=== PATIENT | female | born 1960 | race Caucasian/White ===

== ENCOUNTER → 2023-09-06 07:25 | Outpatient (REF) | payer OTHER, SELFPAY ==
[2023-09-06 08:35] LABS: % Basophils 1.8 % (0-2); % Eosinophils 1.6 % (0-6); % Immature Granulocytes 0.3 % (0-0.5); % Lymphocytes 38.9 % (20.5-51.1); % Monocytes 9.8 % (1.7-9.3); % Neutrophils 47.6 % (42.2-75.2); Absolute Basophils 0.1 10^3/uL (0-0.2); Absolute Eosinophils 0.1 10^3/uL (0-0.7); Absolute Lymphocytes 1.5 10^3/uL (1.2-3.4); Absolute Monocytes 0.4 10^3/uL (0.1-0.6); Absolute Neutrophils 1.8 10^3/uL (1.4-6.5); Hematocrit 41.1 % (37.0-47.0); Hemoglobin 13.6 g/dL (12.0-16.0); Mean Corp Hgb Conc. 33.1 g/dL (33.0-37.0); Mean Corpuscular Hgb 29.8 pg (27.0-31.0); Mean Corpuscular Volume 89.9 fL (81.0-99.0); Mean Platelet Volume 9.7 fL (7.4-10.4); Nucleated Red Blood Cells % 0 %; Platelet Count 294 10^3/uL (130-400); Red Blood Cell Count 4.57 10^6/uL (4.20-5.40); Red Cell Dist. Width 12.9 % (11.5-14.5); White Blood Cell Count 3.9 10^3/uL (4.8-10.8)
[2023-09-06 09:17] LABS: Blood Urea Nitrogen 22 mg/dl (7-17); Calcium 8.7 mg/dl (8.4-10.2); Carbon Dioxide 27 mmol/L (22-30); Chloride 104 mmol/L (98-107); Glucose 92 mg/dl (70-99); Sodium 136 mmol/L (135-145); eGFR > 60.00
[2023-09-06 09:40] LABS: Potassium 4.2 mmol/L (3.5-5.1)
== END ==
LOC: RCS 07:25
PROVIDERS: ATTENDING PHYSICIAN Orthopaedic Surgery; FAMILY PHYSICIAN Family Medicine
DX: Z01.818 Encounter for other preprocedural examination (principal)
CPT/HCPCS: 36415; 80048; 85025; 93005

== ENCOUNTER 2023-10-08 15:31 | Emergency (ER) | payer OTHER, SELFPAY ==
[2023-10-08 15:39] VITALS: BP 144/77
[2023-10-08 15:47] VITALS: BMI 21.1
[2023-10-08 16:08] LABS: % Basophils 0.8 % (0-2); % Eosinophils 1.6 % (0-6); % Immature Granulocytes 0.3 % (0-0.5); % Lymphocytes 19.3 % (20.5-51.1); % Monocytes 7.8 % (1.7-9.3); % Neutrophils 70.2 % (42.2-75.2); Absolute Basophils 0.1 10^3/uL (0-0.2); Absolute Eosinophils 0.1 10^3/uL (0-0.7); Absolute Lymphocytes 1.2 10^3/uL (1.2-3.4); Absolute Monocytes 0.5 10^3/uL (0.1-0.6); Absolute Neutrophils 4.4 10^3/uL (1.4-6.5); Hematocrit 36.2 % (37.0-47.0); Hemoglobin 12.1 g/dL (12.0-16.0); Mean Corp Hgb Conc. 33.4 g/dL (33.0-37.0); Mean Corpuscular Volume 89.6 fL (81.0-99.0); Mean Platelet Volume 9.6 fL (7.4-10.4); Nucleated Red Blood Cells % 0 %; Platelet Count 359 10^3/uL (130-400); Red Blood Cell Count 4.04 10^6/uL (4.20-5.40); Red Cell Dist. Width 13.3 % (11.5-14.5); White Blood Cell Count 6.3 10^3/uL (4.8-10.8)
[2023-10-08 16:09] VITALS: BP 123/74
[2023-10-08 16:28] LABS: ALT (SGPT) 20 U/L (0-35); AST (SGOT) 27 U/L (14-36); Albumin 4.1 g/dl (3.5-5.0); Alkaline Phosphatase 78 U/L (38-126); Blood Urea Nitrogen 20 mg/dl (7-17); Calcium 9.2 mg/dl (8.4-10.2); Carbon Dioxide 24 mmol/L (22-30); Chloride 102 mmol/L (98-107); Estimated Creatinine Clearance 77 ml/min; Glucose 103 mg/dl (70-99); Potassium 4.3 mmol/L (3.5-5.1); Sodium 133 mmol/L (135-145); Total Bilirubin 0.8 mg/dl (0.2-1.3); Total Protein 7.4 g/dl (6.3-8.2); eGFR > 60.00
[2023-10-08 16:36] LABS: Troponin I < 0.012 ng/ml
[2023-10-08 16:48] LABS: D-Dimer 9.26 ug/mlFEU (0.00-0.50)
--- NOTE | 2023-10-08 19:09 | ED.GENMED ---
History of Present Illness
General
Chief Complaint: Fainting Sensation
Source: patient and family
Exam Limitations: none
Time Seen by Provider: 10/08/23 15:49
Nursing documentation reviewed up to this point in time: agreed with
Travel History
Have you had any contact with someone who has COVID-19?: No
Do you have any symptoms of coronavirus? Fever > 100 degrees, chills, cough, shortness of breath, sore throat, loss of taste or smell, muscle aches, or headache?: No
History of Present Illness
History of Present Illness:
63-year-old female past medical history of GERD and left hip replacement 2 weeks ago presenting to the emergency department today with concerns of episode of lightheadedness while she was doing some work around the house and has felt some
lightheadedness ongoing since then did not fully lose conscious denies chest pain did have some palpitations afterward. Denies nausea vomiting fevers. Denies cough. Denies significant shortness of breath. Has had ongoing leg swelling to the left
leg. Denies redness or warmth.
Review of Systems
Review of Systems
Allergies reviewed?: Yes
All Other Systems: ROS reviewed and negative except as documented in HPI and ROS
Phy Exam
Physical Exam
Physical Exam:
GENERAL: Alert , in no apparent distress
EYE: pupils equal and reactive
NECK: Supple, no significant adenopathy.
ENT: o/p clr, mmm.
CARDIAC: Regular rate and rhythm .
LUNGS: Clear breath sounds bilaterally, no acute respiratory distress, no wheezes/rales/rhonchi
ABDOMEN: Soft, without focal tenderness, no r/g, no cvat
NEUROLOGICAL: Alert and oriented, no focal neuro deficits
SKIN: Warm and dry, skin intact.
MUSCULOSKELETAL: Swelling diffusely to the left lower extremity hip distally with +1 pitting edema., well perfused.
PSYCH: Normal and appropriate interaction.
Course
Orders/Labs/Results
Orders:
Orders
10/08/23 15:40
Electrocardiogram (*1) Urgent
Reason for Study: Chest Pain
EKG- Treatment ONCE
IV Insert/Care/Rem.- Treatment PRN
10/08/23 15:51
Complete Blood Count/With Diff Urgent
Comprehensive Metabolic Panel Urgent
Troponin I Urgent
10/08/23 16:15
Venous Doppler Lwr Ext Left [US Periph Venous LOWER Ext LT] Urgent
Comment:
Reason For Exam: left leg swelling recent surgeyr to hip
10/08/23 16:23
D-Dimer Urgent
10/08/23 17:13
CT Chest Pe Study Urgent
Comment:
Reason For Exam: elevated dimer, sob/LH recent left hip surgery
Abnormal Lab Results
10/08/23 10/08/23
15:51 16:23
RBC 4.04 L 10^6/uL
(4.20-5.40)
Hct 36.2 L %
(37.0-47.0)
Lymphocytes % 19.3 L %
(20.5-51.1)
D-Dimer 9.26 H ug/mlFEU
(0.00-0.50)
Sodium 133 L mmol/L
(135-145)
BUN 20 H mg/dl
(7-17)
Glucose 103 H mg/dl
(70-99)
10/08/23 15:51
10/08/23 15:51
Vital Signs
Initial and Last Documented VS:
Initial Vital Signs
Temp Pulse Resp BP Pulse Ox
98.2 F 82 18 144/77 100
10/08/23 15:39 10/08/23 15:39 10/08/23 15:39 10/08/23 15:39 10/08/23 15:39
Last Documented Vital Signs
Temp Pulse Resp BP Pulse Ox
98.2 F 87 12 123/74 99
10/08/23 15:39 10/08/23 18:00 10/08/23 18:00 10/08/23 16:09 10/08/23 18:00
MDM/Problems Addressed
MDM/Problems Addressed:
63-year-old female presenting to the emergency department today with concerns of lightheadedness. Had recent hip surgery 2 weeks ago. Has had ongoing leg swelling. Denies any chest pain did have some intermittent palpitations today. Upon arrival
vital signs are normal patient in no obvious distress lungs are clear left leg is swollen ultrasound performed without emergent findings or clot troponin negative dimer was significantly elevated however this is likely be due to recent surgery
however CT scan was ordered to rule out PE. PE negative. Patient appears stable for outpatient management return precautions given.
*Critical Care Note
Total Time (30-74mins, 75-104mins- exclusive of procedures): Not Applicable
ED Attending Note
-
Portions of this chart may have been created with voice recognition software.� Occasional wrong word or��sound alike� substitutions may have occurred due to the inherent limitations of voice recognition software.
Discharge Plan
Departure
Patient Disposition: Home (Routine Discharge)
Date of Disposition: 10/08/23
Time of Disposition: 19:11
Patient with high blood pressure during this ER visit?: No
Condition: Good
Covid-19: Not Applicable
Discharge Problem:
Light-headed
Instructions: Near Fainting (DC)
Prescriptions:
No Action
omeprazole 40 mg Capsule,Delayed Release(Dr/Ec)
40 mg PO DAILY
docusate sodium [Colace] 100 mg Capsule
100 mg PO DAILY
aspirin 81 mg Tablet
81 mg PO DAILY
polyethylene glycol 3350 [Miralax] 17 gram/dose Powder
4 g PO DAILY
Referrals:
Jose Dixon MD [Family Provider] -
Activity Restrictions/Additional Instructions:
You came to the emergency department today with concerns of an episode of lightheadedness and palpitations.. Reassuring evaluation. Please help closely as an outpatient. Return to the emergency department for any worsening, new or concerning
symptoms.
Interventions
Interventions:
*Risk Screen - Suicide Last Done: 10/08/23 17:46
*General Assessment Last Done: 10/08/23 17:47
*Neglect/Abuse Screening Last Done: 10/08/23 17:46
ED- Fall Risk Assessment Last Done: 10/08/23 17:47
*ED COVID-19 Vaccine History Last Done: 10/08/23 15:48
ED- Cardiac Assessment Last Done: 10/08/23 17:46
ED- Neurological Assessment Last Done: 10/08/23 17:46
Discharge Date and Time
Print Language: SAMI
[2023-10-08 19:52] VITALS: BP 93/82
[2023-10-08 20:47] VITALS: BP 110/70
== END 2023-10-08 20:49 | disposition home or self-care (01) ==
LOC: EMR 15:31
PROVIDERS: Physician Assistant; EMERGENCY PHYSICIAN Emergency Medicine; FAMILY PHYSICIAN Family Medicine
DX: R42 Dizziness and giddiness (principal); R22.42 Localized swelling, mass and lump, left lower limb; R00.2 Palpitations; R79.89 Other specified abnormal findings of blood chemistry
CPT/HCPCS: 99285; 71275; 80053; 84484; 85025; 85379; 93005; 93971; Q9967

== ENCOUNTER → 2023-11-01 09:30 | Outpatient (REF) | payer OTHER, SELFPAY ==
[2023-11-01 12:22] LABS: Rubella Positive
[2023-11-01 15:35] LABS: Hepatitis B Surface Antibody Negative
[2023-11-03 23:51] LABS: Quantiferon Mitogen minus NIL 6.61 IU/mL; Quantiferon NIL 0.02 IU/mL; Quantiferon TB Gold Plus Negative (Negative)
[2023-11-07 16:55] LABS: Mumps Virus IgG Positive; Varicella Zoster IgG (VZV) Positive
[2023-11-08 14:34] LABS: Rubeola (Measles) IgG Positive
== END ==
LOC: OHS 09:30
PROVIDERS: ATTENDING PHYSICIAN Nurse Practitioner Family
DX: Z23 Encounter for immunization (principal)
CPT/HCPCS: 36415; 86480; 86706; 86735; 86762; 86765; 86787

== ENCOUNTER 2023-12-12 07:35 | Emergency (ER) | payer BC, SELFPAY ==
[2023-12-12 07:46] VITALS: BP 121/87
[2023-12-12 08:09] LABS: % Basophils 0.9 % (0-2); % Eosinophils 0.9 % (0-6); % Immature Granulocytes 0.5 % (0-0.5); % Lymphocytes 25.5 % (20.5-51.1); % Neutrophils 63.2 % (42.2-75.2); Absolute Lymphocytes 1.1 10^3/uL (1.2-3.4); Absolute Monocytes 0.4 10^3/uL (0.1-0.6); Absolute Neutrophils 2.7 10^3/uL (1.4-6.5); Hematocrit 41.8 % (37.0-47.0); Hemoglobin 13.8 g/dL (12.0-16.0); Mean Corpuscular Hgb 28.8 pg (27.0-31.0); Mean Corpuscular Volume 87.3 fL (81.0-99.0); Mean Platelet Volume 9.7 fL (7.4-10.4); Nucleated Red Blood Cells % 0 %; Platelet Count 234 10^3/uL (130-400); Red Blood Cell Count 4.79 10^6/uL (4.20-5.40); White Blood Cell Count 4.2 10^3/uL (4.8-10.8)
[2023-12-12 08:13] LABS: Urine Albumin Negative (Neg - Trace); Urine Bilirubin Negative (Negative); Urine Character Clear (Clear); Urine Color Yellow; Urine Glucose Negative (Negative); Urine Ketone Trace (Negative); Urine Leukocyte Trace (Negative); Urine Nitrite Negative (Negative); Urine Occult Blood 1+ (Negative); Urine Urobilinogen Negative (Neg - 1+); Urine pH 6.5 (5.0-9.0)
[2023-12-12 08:22] LABS: ALT (SGPT) 20 U/L (0-35); AST (SGOT) 24 U/L (14-36); Albumin 4.4 g/dl (3.5-5.0); Alkaline Phosphatase 66 U/L (38-126); Blood Urea Nitrogen 15 mg/dl (7-17); Calcium 9.5 mg/dl (8.4-10.2); Carbon Dioxide 31 mmol/L (22-30); Chloride 102 mmol/L (98-107); Glucose 110 mg/dl (70-99); Potassium 4.5 mmol/L (3.5-5.1); Sodium 140 mmol/L (135-145); Total Bilirubin 0.9 mg/dl (0.2-1.3); Total Protein 8.1 g/dl (6.3-8.2); eGFR > 60.00
[2023-12-12 08:37] LABS: Urine Bacteria Few (Negative); Urine Squamous Cell 21-25 /LPF (Few)
[2023-12-12 08:38] LABS: Urine White Cell 0-2 /HPF (0-5)
--- NOTE | 2023-12-12 09:30 | ED.GENMED ---
History of Present Illness
General
Chief Complaint: Abdominal Symptoms
Source: patient
Exam Limitations: none
Time Seen by Provider: 12/12/23 09:20
Nursing documentation reviewed up to this point in time: agreed with
Travel History
Have you had any contact with someone who has COVID-19?: No
Do you have any symptoms of coronavirus? Fever > 100 degrees, chills, cough, shortness of breath, sore throat, loss of taste or smell, muscle aches, or headache?: No
History of Present Illness
History of Present Illness:
63-year-old female past medical history of GERD presenting to the emergency department today with concerns of diffuse abdominal discomfort over the past 2 days denies nausea vomiting. She claims it hurts to touch. Denies similar symptoms in the
past. Tried taking Protonix without relief.
Review of Systems
Review of Systems
Allergies reviewed?: Yes
All Other Systems: ROS reviewed and negative except as documented in HPI and ROS
Phy Exam
Physical Exam
Physical Exam:
GENERAL: Alert , in no apparent distress
EYE: pupils equal and reactive
NECK: Supple, no significant adenopathy.
ENT: o/p clr, mmm.
CARDIAC: Regular rate and rhythm .
LUNGS: Clear breath sounds bilaterally, no acute respiratory distress, no wheezes/rales/rhonchi
ABDOMEN: Mild tenderness palpation throughout the abdomen maximal to the epigastric region
NEUROLOGICAL: Alert and oriented, no focal neuro deficits
SKIN: Warm and dry, skin intact.
MUSCULOSKELETAL: No edema, well perfused.
PSYCH: Normal and appropriate interaction.
Course
Orders/Labs/Results
Orders:
Orders
12/12/23 07:53
Complete Blood Count/With Diff Urgent
Comprehensive Metabolic Panel Urgent
Lipase Urgent
Comment: ADD ON
Urinalysis Reflex To Culture Urgent
Date Specimen was Collected: 12/12/23
Time Specimen was Collected: 07:48
Urine Microscopic Reflex Cult Urgent
12/12/23 09:29
Add On- LAB Urgent
Tests Added?: lipase
CT Abd/Pel (IV only)-DH only Urgent
Comment:
Reason For Exam: diffuse abd pa,in for a few days
12/12/23 09:31
EKG [Electrocardiogram (*1)] Urgent
Reason for Study: Abdominal Pain
EKG- Treatment ONCE
Abnormal Lab Results
12/12/23
07:53
WBC 4.2 L 10^3/uL
(4.8-10.8)
Absolute Lymphs (auto) 1.1 L 10^3/uL
(1.2-3.4)
Carbon Dioxide 31 H mmol/L
(22-30)
Glucose 110 H mg/dl
(70-99)
Urine Ketones Trace A
(Negative)
Ur Occult Blood Reflex 1+ A
(Negative)
Leukocyte Esterase Rfl Trace A
(Negative)
Urine RBC 3-6 A /HPF
(0-2)
Urine Bacteria (Reflex) Few A
(Negative)
12/12/23 07:53
12/12/23 07:53
Vital Signs
Initial and Last Documented VS:
Initial Vital Signs
Temp Pulse Resp BP Pulse Ox
98.0 F 76 16 121/87 98
12/12/23 07:46 12/12/23 07:46 12/12/23 07:46 12/12/23 07:46 12/12/23 07:46
Last Documented Vital Signs
Temp Pulse Resp BP Pulse Ox
98.0 F 70 13 125/64 100
12/12/23 07:46 12/12/23 10:16 12/12/23 10:16 12/12/23 10:15 12/12/23 10:16
MDM/Problems Addressed
MDM/Problems Addressed:
63-year-old female presenting to the emergency department today with concerns of somewhat diffuse abdominal pain but maximal to the epigastric region over the past few days tried taking omeprazole at home without relief. No nausea vomiting or
diarrhea. Labs unremarkable CT scan without emergent findings patient generally well-appearing no acute distress advised for outpatient follow-up with GI return precautions given.
*Critical Care Note
Total Time (30-74mins, 75-104mins- exclusive of procedures): Not Applicable
ED Attending Note
-
Portions of this chart may have been created with voice recognition software.� Occasional wrong word or��sound alike� substitutions may have occurred due to the inherent limitations of voice recognition software.
Discharge Plan
Departure
Patient Disposition: Home (Routine Discharge)
Date of Disposition: 12/12/23
Time of Disposition: 11:46
Patient with high blood pressure during this ER visit?: No
Condition: Good
Covid-19: Not Applicable
Discharge Problem:
Abdominal pain
Instructions: Abdominal Pain
Prescriptions:
No Action
omeprazole 40 mg Capsule,Delayed Release(Dr/Ec)
40 mg PO DAILY
docusate sodium [Colace] 100 mg Capsule
100 mg PO DAILY
aspirin 81 mg Tablet
81 mg PO DAILY
polyethylene glycol 3350 [Miralax] 17 gram/dose Powder
4 g PO DAILY
Referrals:
Jose Dixon MD [Family Provider] -
Activity Restrictions/Additional Instructions:
You came to the emergency department today with concerns of abdominal pain. Here your reassuring assessment. Please feel close with GI. Please also take famotidine once daily at night as well as Maalox as needed. Return to the emergency
department for any worsening, new or concerning symptoms.
Interventions
Interventions:
*Risk Screen - Suicide Last Done: 12/12/23 09:40
*General Assessment Last Done: 12/12/23 09:40
*Neglect/Abuse Screening Last Done: 12/12/23 09:40
*ED COVID-19 Vaccine History Last Done: 12/12/23 07:46
[id number]-[id number] Assessment Last Done: 12/12/23 09:40
Discharge Date and Time
Print Language: YAKUT
[2023-12-12 10:11] LABS: Lipase 129 U/L (23-300)
[2023-12-12 10:15] VITALS: BP 125/64
[2023-12-12 11:00] VITALS: BP 128/69
== END 2023-12-12 12:12 | disposition home or self-care (01) ==
LOC: EMR 07:35
PROVIDERS: Emergency Medicine; EMERGENCY PHYSICIAN Emergency Medicine; FAMILY PHYSICIAN Family Medicine
DX: R10.84 Generalized abdominal pain (principal); K21.9 Gastro-esophageal reflux disease without esophagitis; Z96.642 Presence of left artificial hip joint; Z88.0 Allergy status to penicillin
CPT/HCPCS: 99285; 74177; 80053; 81003; 81015; 83690; 85025; 93005; Q9967

== ENCOUNTER → 2024-04-06 10:58 | Outpatient (REF) | payer BC, SELFPAY ==
[2024-04-08 07:33] LABS: Alternaria tenuis <0.10 kU/L (<=0.34); Aspergillus fumigatus <0.10 kU/L (<=0.34); Bermuda Grass <0.10 kU/L (<=0.34); Birch Tree <0.10 kU/L (<=0.34); Box Elder/Maple Tree <0.10 kU/L (<=0.34); Cat Epithelium/Dander <0.10 kU/L (<=0.34); Common Pigweed <0.10 kU/L (<=0.34); Common/Short Ragweed <0.10 kU/L (<=0.34); Cottonwood Tree <0.10 kU/L (<=0.34); Dermatophagoides farinae <0.10 kU/L (<=0.34); Dermatophagoides pteronyssinus <0.10 kU/L (<=0.34); Dog Dander <0.10 kU/L (<=0.34); Elm Tree <0.10 kU/L (<=0.34); German Cockroach <0.10 kU/L (<=0.34); Hormodendrum <0.10 kU/L (<=0.34); IgE 20 kU/L (<=214); Mountain Cedar Tree <0.10 kU/L (<=0.34); Mouse Epithelium <0.10 kU/L (<=0.34); Mucor racemosus <0.10 kU/L (<=0.34); Mugwort Weed <0.10 kU/L (<=0.34); Oak Tree <0.10 kU/L (<=0.34); Penicillium notatum <0.10 kU/L (<=0.34); Sheep Sorrel Weed <0.10 kU/L (<=0.34); Sycamore Tree <0.10 kU/L (<=0.34); Timothy Grass <0.10 kU/L (<=0.34); Walnut Tree <0.10 kU/L (<=0.34); White Ash Tree <0.10 kU/L (<=0.34); White Mulberry Tree <0.10 kU/L (<=0.34)
== END ==
LOC: REG 10:58
PROVIDERS: ATTENDING PHYSICIAN Internal Medicine; FAMILY PHYSICIAN Family Medicine
DX: J31.0 Chronic rhinitis (principal); J30.1 Allergic rhinitis due to pollen
CPT/HCPCS: 36415; 82785; 86003

== ENCOUNTER → 2024-06-22 07:24 | Outpatient (REF) | payer BC, SELFPAY ==
[2024-06-22 09:24] LABS: % Basophils 1.5 % (0-2); % Eosinophils 1.8 % (0-6); % Lymphocytes 36.2 % (20.5-51.1); % Monocytes 9.7 % (1.7-9.3); % Neutrophils 50.8 % (42.2-75.2); Absolute Basophils 0.1 10^3/uL (0-0.2); Absolute Eosinophils 0.1 10^3/uL (0-0.7); Absolute Lymphocytes 1.4 10^3/uL (1.2-3.4); Absolute Monocytes 0.4 10^3/uL (0.1-0.6); Hematocrit 41.6 % (37.0-47.0); Hemoglobin 13.7 g/dL (12.0-16.0); Mean Corp Hgb Conc. 32.9 g/dL (33.0-37.0); Mean Corpuscular Hgb 29.8 pg (27.0-31.0); Mean Corpuscular Volume 90.6 fL (81.0-99.0); Mean Platelet Volume 10.8 fL (7.4-10.4); Nucleated Red Blood Cells % 0 %; Platelet Count 195 10^3/uL (130-400); Red Blood Cell Count 4.59 10^6/uL (4.20-5.40); Red Cell Dist. Width 13.2 % (11.5-14.5); White Blood Cell Count 3.9 10^3/uL (4.8-10.8)
[2024-06-22 09:55] LABS: ALT (SGPT) 26 U/L (0-35); AST (SGOT) 29 U/L (14-36); Albumin 4.3 g/dl (3.5-5.0); Alkaline Phosphatase 49 U/L (38-126); Amylase 138 U/L (30-110); Blood Urea Nitrogen 26 mg/dl (7-17); Carbon Dioxide 30 mmol/L (22-30); Chloride 101 mmol/L (98-107); Glucose 86 mg/dl (70-99); HDL Cholesterol 97 mg/dl; LDL Cholesterol, Calculated 116 mg/dl; Lipase 333 U/L (23-300); Potassium 4.5 mmol/L (3.5-5.1); Sodium 139 mmol/L (135-145); Total Cholesterol 223 mg/dl (50-199); Total Protein 7.8 g/dl (6.3-8.2); Triglyceride 53 mg/dl (10-149); Very Low Density Lipoprotein 10 mg/dl (0-30); eGFR > 60.00
[2024-06-22 10:13] LABS: Glycohemoglobin (HgbA1c) 5.7 % (4.0-5.6)
[2024-06-22 11:08] LABS: TSH 1.14 uIU/ml (0.47-4.68)
[2024-06-22 15:32] LABS: Lactic Acid 0.7 mmol/L (0.7-2.0)
== END ==
LOC: REG 07:24
PROVIDERS: ATTENDING PHYSICIAN Family Medicine
DX: Z00.00 Encounter for general adult medical examination without abnormal findings (principal); E78.2 Mixed hyperlipidemia; K22.70 Barrett's esophagus without dysplasia; K92.89 Other specified diseases of the digestive system; R73.9 Hyperglycemia, unspecified
CPT/HCPCS: 36415; 80053; 80061; 82150; 83036; 83605; 83690; 84443; 85025

== ENCOUNTER → 2024-08-31 07:48 | Outpatient (REF) | payer BC, SELFPAY ==
[2024-08-31 08:59] LABS: % Basophils 1.2 % (0-2); % Eosinophils 2.9 % (0-6); % Immature Granulocytes 0.2 % (0-0.5); % Lymphocytes 35.4 % (20.5-51.1); % Monocytes 9.7 % (1.7-9.3); % Neutrophils 50.6 % (42.2-75.2); Absolute Basophils 0.1 10^3/uL (0-0.2); Absolute Eosinophils 0.1 10^3/uL (0-0.7); Absolute Lymphocytes 1.5 10^3/uL (1.2-3.4); Absolute Monocytes 0.4 10^3/uL (0.1-0.6); Absolute Neutrophils 2.1 10^3/uL (1.4-6.5); Hematocrit 42.9 % (37.0-47.0); Mean Corp Hgb Conc. 32.6 g/dL (33.0-37.0); Mean Corpuscular Hgb 30.3 pg (27.0-31.0); Mean Corpuscular Volume 92.9 fL (81.0-99.0); Mean Platelet Volume 10.4 fL (7.4-10.4); Nucleated Red Blood Cells % 0 %; Platelet Count 181 10^3/uL (130-400); Red Blood Cell Count 4.62 10^6/uL (4.20-5.40); Red Cell Dist. Width 13.2 % (11.5-14.5); White Blood Cell Count 4.2 10^3/uL (4.8-10.8)
[2024-08-31 09:33] LABS: ALT (SGPT) 24 U/L (0-35); AST (SGOT) 30 U/L (14-36); Alkaline Phosphatase 53 U/L (38-126); Blood Urea Nitrogen 23 mg/dl (7-17); Carbon Dioxide 29 mmol/L (22-30); Chloride 102 mmol/L (98-107); Glucose 91 mg/dl (70-99); Potassium 4.4 mmol/L (3.5-5.1); Sodium 137 mmol/L (135-145); Total Protein 7.6 g/dl (6.3-8.2); eGFR > 60.00
== END ==
LOC: REG 07:48
PROVIDERS: ATTENDING PHYSICIAN Internal Medicine Medical Oncology; FAMILY PHYSICIAN Family Medicine
DX: D47.2 Monoclonal gammopathy (principal)
CPT/HCPCS: 36415; 80053; 82784; 83521; 84155; 84165; 85025; 86334

== ENCOUNTER → 2024-09-03 09:33 | Outpatient (REF) | payer BC, SELFPAY ==
[2024-09-05 08:53] LABS: 24 Hour Urine Total Volume 1700 mL; Ur Free Lambda Excretion/day 17.07 mg/d; Urine Collection Length 24 hr; Urine Free Kappa Excretion/Day 7.56 mg/d; Urine Free Kappa Light Chains 4.45 mg/L (0.00-32.90); Urine Free Lambda Light Chains 10.04 mg/L (0.00-3.79)
== END ==
LOC: REG 09:33
PROVIDERS: ATTENDING PHYSICIAN Internal Medicine Medical Oncology; FAMILY PHYSICIAN Family Medicine
DX: D47.2 Monoclonal gammopathy (principal)
CPT/HCPCS: 83521; 84156; 86335

== ENCOUNTER → 2024-11-20 08:01 | Outpatient (REF) | payer BC, SELFPAY ==
[2024-11-20 09:25] LABS: ALT (SGPT) 40 U/L (0-35); AST (SGOT) 118 U/L (14-36); Albumin 5.3 g/dl (3.5-5.0); Alkaline Phosphatase 416 U/L (38-126); Blood Urea Nitrogen 23 mg/dl (7-17); Calcium 8.6 mg/dl (8.4-10.2); Carbon Dioxide 26 mmol/L (22-30); Chloride 108 mmol/L (98-107); Glucose 85 mg/dl (70-99); Potassium 4.5 mmol/L (3.5-5.1); Sodium 141 mmol/L (135-145); Total Bilirubin 6.2 mg/dl (0.2-1.3); Total Protein 9.4 g/dl (6.3-8.2); eGFR > 60.00
[2024-11-20 11:47] LABS: Vitamin D, 25-OH*** 32.9 ng/mL (30-80)
== END ==
LOC: REG 08:01
PROVIDERS: ATTENDING PHYSICIAN Internal Medicine Rheumatology; FAMILY PHYSICIAN Family Medicine
DX: E55.9 Vitamin D deficiency, unspecified (principal); M81.0 Age-related osteoporosis without current pathological fracture
CPT/HCPCS: 36415; 80053; 82306

== ENCOUNTER → 2024-11-22 14:51 | Outpatient (REF) | payer BC, SELFPAY ==
[2024-11-22 16:23] LABS: ALT (SGPT) 20 U/L (0-35); AST (SGOT) 24 U/L (14-36); Albumin 4.1 g/dl (3.5-5.0); Alkaline Phosphatase 52 U/L (38-126); Amylase 96 U/L (30-110); Blood Urea Nitrogen 23 mg/dl (7-17); Calcium 9.6 mg/dl (8.4-10.2); Carbon Dioxide 28 mmol/L (22-30); GGTP 11 U/L (12-43); Glucose 113 mg/dl (70-99); Lipase 199 U/L (23-300); Total Bilirubin 0.6 mg/dl (0.2-1.3); Total Protein 8.2 g/dl (6.3-8.2); eGFR > 60.00
[2024-11-22 16:24] LABS: Chloride 105 mmol/L (98-107); Potassium 4.6 mmol/L (3.5-5.1); Sodium 140 mmol/L (135-145)
[2024-11-22 16:35] LABS: % Immature Granulocytes 0.3 % (0-0.5); % Lymphocytes 25.6 % (20.5-51.1); % Neutrophils 64.1 % (42.2-75.2); Absolute Basophils 0.1 10^3/uL (0-0.2); Absolute Eosinophils 0.1 10^3/uL (0-0.7); Absolute Lymphocytes 1.6 10^3/uL (1.2-3.4); Absolute Monocytes 0.5 10^3/uL (0.1-0.6); Hematocrit 41.6 % (37.0-47.0); Hemoglobin 13.4 g/dL (12.0-16.0); Mean Corp Hgb Conc. 32.2 g/dL (33.0-37.0); Mean Corpuscular Hgb 29.5 pg (27.0-31.0); Mean Corpuscular Volume 91.6 fL (81.0-99.0); Mean Platelet Volume 10.3 fL (7.4-10.4); Nucleated Red Blood Cells % 0 %; Platelet Count 216 10^3/uL (130-400); Red Blood Cell Count 4.54 10^6/uL (4.20-5.40); Red Cell Dist. Width 13.1 % (11.5-14.5); White Blood Cell Count 6.3 10^3/uL (4.8-10.8)
[2024-11-22 16:56] LABS: Hepatitis B Surface Antigen Negative (Negative)
[2024-11-22 17:13] LABS: Hepatitis A Antibody, Total Negative (Negative); Hepatitis B Core Ab, Total Negative (Negative); Hepatitis B Surface Antibody Negative; Hepatitis C Antibody Negative (Negative)
== END ==
LOC: REG 14:51
PROVIDERS: ATTENDING PHYSICIAN Nurse Practitioner Family; FAMILY PHYSICIAN Family Medicine
DX: R74.8 Abnormal levels of other serum enzymes (principal)
CPT/HCPCS: 36415; 80053; 82150; 82977; 83690; 85025; 86704; 86706; 86708; 86803; 87340

== ENCOUNTER → 2025-03-15 07:55 | Outpatient (REF) | payer BC, SELFPAY ==
[2025-03-15 08:58] LABS: Hematocrit 38.5 % (37.0-47.0); Hemoglobin 13.0 g/dL (12.0-16.0); Mean Corp Hgb Conc. 33.8 g/dL (33.0-37.0); Mean Corpuscular Volume 90.0 fL (81.0-99.0); Nucleated Red Blood Cells % 0 %; Platelet Count 194 10^3/uL (130-400); Red Cell Dist. Width 12.7 % (11.5-14.5)
[2025-03-15 09:22] LABS: ALT (SGPT) 29 U/L (0-35); AST (SGOT) 39 U/L (14-36); Albumin 4.1 g/dl (3.5-5.0); Alkaline Phosphatase 38 U/L (38-126); Blood Urea Nitrogen 25 mg/dl (7-17); Calcium 8.8 mg/dl (8.4-10.2); Carbon Dioxide 28 mmol/L (22-30); Chloride 106 mmol/L (98-107); Glucose 90 mg/dl (70-99); Potassium 4.6 mmol/L (3.5-5.1); Sodium 138 mmol/L (135-145); Total Protein 7.8 g/dl (6.3-8.2); eGFR > 60.00
== END ==
LOC: REG 07:55
PROVIDERS: ATTENDING PHYSICIAN Internal Medicine Medical Oncology; FAMILY PHYSICIAN Family Medicine
DX: D47.2 Monoclonal gammopathy (principal)
CPT/HCPCS: 36415; 80053; 82784; 83521; 84155; 84165; 85025; 86334

== ENCOUNTER → 2025-05-09 07:44 | Outpatient (REF) | payer BC, SELFPAY | LOC: WDC 07:44 | PROVIDERS: ATTENDING PHYSICIAN Nurse Practitioner Adult Health; FAMILY PHYSICIAN Family Medicine | DX: N63.20 Unspecified lump in the left breast, unspecified quadrant (principal) | CPT/HCPCS: 19083; 19084; 88305; 88341; 88342; 88360; A4648 ==

== ENCOUNTER → 2025-05-25 07:15 | Outpatient (REF) | payer BC, SELFPAY ==
[2025-05-25 08:28] LABS: Urine Character Clear (Clear)
[2025-05-25 09:10] LABS: Urine Squamous Cell >30 /LPF (Few); Urine White Cell None Seen /HPF (0-5)
== END ==
LOC: REG 07:15
PROVIDERS: ATTENDING PHYSICIAN Nurse Practitioner Family; FAMILY PHYSICIAN Family Medicine
DX: R39.9 Unspecified symptoms and signs involving the genitourinary system (principal)
CPT/HCPCS: 81003; 81015

== ENCOUNTER → 2025-05-29 11:02 | Outpatient (REF) | payer BC, SELFPAY ==
[2025-05-29 16:40] LABS: Urine Character Clear (Clear)
[2025-05-29 16:59] LABS: Urine Red Blood Cell 0-2 /HPF (0-2); Urine Squamous Cell 0-2 /LPF (Few)
[2025-05-29 17:00] LABS: Urine White Cell 0-2 /HPF (0-5)
== END ==
LOC: CLAB 11:02
PROVIDERS: ATTENDING PHYSICIAN Nurse Practitioner
DX: N39.0 Urinary tract infection, site not specified (principal)
CPT/HCPCS: 81003; 81015; 87086

== ENCOUNTER 2025-07-09 09:23 | Outpatient (RCR) | payer BC, SELFPAY | END 2025-07-09 23:59 | disposition home or self-care (01) | LOC: RPT 09:23 | PROVIDERS: ATTENDING PHYSICIAN Nurse Practitioner Adult Health; FAMILY PHYSICIAN Family Medicine | DX: C50.412 Malignant neoplasm of upper-outer quadrant of left female breast (principal); Z73.6 Limitation of activities due to disability; M62.81 Muscle weakness (generalized); Z17.0 Estrogen receptor positive status [ER+]; M79.601 Pain in right arm; M54.2 Cervicalgia; M25.512 Pain in left shoulder; M25.511 Pain in right shoulder | CPT/HCPCS: 97110; 97140; 97162; 97530 ==